=== PATIENT | male | born 1990 | race Caucasian/White ===

== ENCOUNTER 2016-07-17 20:33 | Emergency (ER) | payer OTHER ==
[~2016-07-17] VITALS: Ht 170.2 cm; Wt 108.0 kg
[2016-07-17 21:03] VITALS: BP 161/100
[2016-07-17] MEDS ORDERED: IBUPROFEN 800 MG TABLET. PO ONE (21:15)
--- NOTE | 2016-07-17 21:17 | PHYS DOC ---
Past Medical History Past Medical History: Other Additional Past Medical Histor: jayleen Past Surgical History: Other Additional Past Surgical Histo: facial Alcohol Use: None Drug Use: None Adult General Chief Complaint Chief Complaint: HAND PROBLEM HPI HPI Patient is a 26 year old female presents emergency department stating that he smashed his right hand at work. 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 He states that the mechanism that he was working with had a belt that broke in which the heart fell on his hand. He is stating he is having pain in the fifth phalange into the metacarpal area. He has slightly decreased range of motion. Good sensation noted to the finger. Cap refill brisk less than 2 seconds. He came in for pain and discomfort. Patient's blood pressure is elevated here in the emergency department. Patient denies any history of hypertension. Patient is right-hand dominant. Review of Systems Review of Systems Constitutional: Denies fever or chills [] Eyes: Denies change in visual acuity, redness, or eye pain [] HENT: Denies nasal congestion or sore throat [] Respiratory: Denies cough or shortness of breath [] Cardiovascular: No additional information not addressed in HPI [] GI: Denies abdominal pain, nausea, vomiting, bloody stools or diarrhea [] : Denies dysuria or hematuria [] Musculoskeletal: Denies back pain or joint pain [] Integument: Denies rash or skin lesions [] Neurologic: Denies headache, focal weakness or sensory changes [] Endocrine: Denies polyuria or polydipsia [] Current Medications Current Medications Current Medications Medications (Trade) Dose Ordered Sig/[facility] Start Time Stop Time Status Last Admin Dose Admin Ibuprofen (Motrin) 800 mg 1X ONCE 07/17/16 21:15 07/17/16 21:16 Allergies Allergies Allergies Coded Allergies Type Severity Reaction Last Updated Verified acetaminophen Allergy Unknown 07/17/16 Yes Physical Exam Physical Exam Constitutional: Well developed, well nourished, no acute distress, non-toxic appearance. [] HENT: Normocephalic, atraumatic, bilateral external ears normal, oropharynx moist, no oral exudates, nose normal. [] Eyes: PERRLA, EOMI, conjunctiva normal, no discharge. [] Neck: Normal range of motion, no tenderness, supple, no stridor. [] Cardiovascular:Heart rate regular rhythm, no murmur [] Lungs & Thorax: Bilateral breath sounds clear to auscultation [] Skin: Warm, dry, no erythema, no rash. [] Back: No tenderness Extremities: Right fifth finger and metacarpal tenderness, no cyanosis, no clubbing, ROM intact, no edema. No bruising or discoloration noted. Patient is able to bend the finger although has increased discomfort with it. Cap refill brisk less than 2 seconds. Neurologic: Alert and oriented X 3, normal motor function, normal sensory function, no focal deficits noted. [] Psychologic: Affect normal, judgement normal, mood normal. [] Current Patient Data Vital Signs Vital Signs Date Time Temp Pulse Resp B/P (MAP) Pulse Ox O2 Delivery O2 Flow Rate FiO2 07/17/16 21:03 98.8 90 18 99 Room Air 98.8 EKG EKG [] Radiology/Procedures Radiology/Procedures [] Course & Med Decision Making Course & Med Decision Making Pertinent Labs and Imaging studies reviewed. (See chart for details) X-rays negative for any bony abnormalities per Dr. Hurt. Patient will be discharged home with recommendations for ice packs elevation. Also recommended ibuprofen for pain and discomfort. Also inder taping the finger will help with pain and discomfort. Patient was also instructed to monitor his blood pressure at home and follow-up with his primary care physician. Patient will be discharged home in stable condition signs symptoms to return back to emergency department been provided. [] Dragon Disclaimer Dragon Disclaimer This electronic medical record was generated, in whole or in part, using a voice recognition dictation system. Departure Departure Impression: Primary Impression: Hand pain, right Disposition: 01 HOME, SELF-CARE Condition: STABLE Referrals: NO PCP (PCP) Patient Instructions: Hand Injuries, [id number] Additional Instructions: Activity as tolerated. Inder tape the fifth finger to the fourth finger for the next week. ibuprofen for pain and discomfort Ice packs on 20 minutes off 20 minutes several times a day. Elevation as much as possible. Monitor your blood pressure and follow-up through primary care physician. Make sure he keep a log of the blood pressures in which she had taken at home. Follow-up with your work comp in the next 5-7 days. Return back to emergency prior signs symptoms of become worse. GISELE JIMENEZ ENROLLMENT COUNSELOR July 17, 2016 21:16
--- NOTE | 2016-07-18 07:24 | RAD ---
Exam performed:Right hand 3 views. Indication: Patient smashed hand pain fifth digit. Date of Service:07/17/16 Comparison: None available Discussion: PA, oblique lateral radiographs of the hand reveal the osseous structures to be intact and well aligned. The joint spaces are well-preserved. The articular margins are smooth. There is mild diffuse soft tissue swelling, no definite foreign bodies detected. Impression: Mild soft tissue swelling without underlying bony abnormality.
== END 2016-07-17 22:05 | disposition home or self-care (01) ==
LOC: ER 20:33
DX: M79.641 Pain in right hand (principal); R03.0 Elevated blood-pressure reading, without diagnosis of hypertension; Z88.6 Allergy status to analgesic agent; W20.8XXA Other cause of strike by thrown, projected or falling object, initial encounter; Y93.89 Activity, other specified; Y92.69 Other specified industrial and construction area as the place of occurrence of the external cause; Y99.8 Other external cause status
CPT/HCPCS: 73130; 99284